=== PATIENT | male | born 1980 | race Caucasian/White ===

== ENCOUNTER 2023-06-23 11:38 | Inpatient (IN) | payer MEDICAID ==
[~2023-06-23] VITALS: Ht 180.3 cm; Wt 87.9 kg
[2023-06-23] MEDS ORDERED: insulin regular, human 10 units/0.1 ml syringe SQ ONE (12:20)
[2023-06-23] MEDS ORDERED: normal saline 1000ML IV soln IVB ONE (12:20)
[2023-06-23 12:41] LABS: BASOPHILS % (AUTO) 0.1 % (0-1); EOSINOPHILS % (AUTO) 0 % (0-6); HEMATOCRIT 47.1 % (42.0-52.0); HEMOGLOBIN 15.8 g/dl (14.0-17.9); LYMPHOCYTES # (AUTO) 0.9 X10'3 (1.1-4.8); LYMPHOCYTES % (AUTO) 5.9 % (21-51); MEAN CORPUSCULAR HGB CONC 33.5 g/dL (33.0-36.5); MEAN CORPUSCULAR VOLUME 86.6 FL (78-98); MEAN PLATELET VOLUME 10.4 FL (7.4-10.4); MONOCYTES # (AUTO) 0.4 X10'3 (0-0.9); MONOCYTES % (AUTO) 2.5 % (2-12); NEUTROPHILS # (AUTO) 13.3 X10'3 (1.8-7.7); NEUTROPHILS % (AUTO) 91.5 % (42-75); PLATELET COUNT 357 X10'3 (140-440); RED BLOOD COUNT 5.45 X10'6 (4.70-6.10); RED CELL DISTRIBUTION WIDTH 13.1 % (11.5-14.5); WHITE BLOOD COUNT 14.5 X10'3 (4.5-11.0)
[2023-06-23 12:42] LABS: BILIRUBIN,URINE NEGATIVE (Neg); CLARITY,URINE CLEAR (Clear); COLOR,URINE YELLOW (Yellow); GLUCOSE, URINE >=1000 mg/dl (Neg); KETONES,URINE >=80 mg/dl (Neg); LEUKOCYTE ESTERASE ,URINE NEGATIVE (Neg); NITRITES, URINE NEGATIVE (Neg); OCCULT BLOOD,URINE TRACE-INTACT (Neg); PROTEIN,URINE NEGATIVE (Neg); UROBILINOGEN,URINE 0.2 E.U/dL (0.2-1.0)
[2023-06-23 12:49] LABS: UA COLLECTION TYPE URINAL
[2023-06-23 12:50] LABS: BACTERIA,URINE NONE SEEN /HPF (Neg); MUCUS STRANDS NONE SEEN /LPF (Neg); SQUAMOUS EPITHELIAL CELL,UR FEW /LPF (FEW); WBC,URINE 0-4 /HPF (0-4)
[2023-06-23 12:54] LABS: URINE AMPHETAMINE SCREEN NEGATIVE (Neg); URINE BARBITUATE SCREEN NEGATIVE (Neg); URINE BENZODIAZEPINES SCREEN NEGATIVE (Neg); URINE CANNABINOID SCREEN NEGATIVE (Neg); URINE COCAINE SCREEN POSITIVE (Neg); URINE METHADONE SCREEN NEGATIVE (Neg); URINE OPIATE SCREEN NEGATIVE (Neg); URINE PHENCYCLIDINE SCREEN NEGATIVE (Neg)
[2023-06-23 13:01] LABS: ALANINE AMINOTRANSFERASE 14 U/L (12-78); ALBUMIN 3.5 G/DL (3.4-5.0); ALBUMIN/GLOBULIN RATIO 0.7 (1.1-1.5); ALKALINE PHOSPHATASE 128 IU/L (46-116); ANION GAP 21 (8-16); ASPARTATE AMINO TRANSFERASE 22 U/L (10-37); BILIRUBIN,TOTAL 0.8 MG/DL (0.1-1.0); BLOOD UREA NITROGEN 17 MG/DL (7-18); CALCIUM 9.3 MG/DL (8.5-10.1); CHLORIDE 91 MMOL/L (99-107); CREATININE 1.31 MG/DL (0.60-1.10); POTASSIUM 4.5 MMOL/L (3.5-5.1); SODIUM 131 MMOL/L (135-145); TOTAL PROTEIN 8.5 G/DL (6.4-8.2); eCRCL 77 ML/MIN; eGFR 59 ML/MIN
[2023-06-23 13:24] LABS: ETHANOL < 10 MG/DL (<10); GLUCOSE 554 MG/DL (70-104)
[2023-06-23] MEDS ORDERED: Insulin Reg/NS 100units/100mL 100 ML IV PRN (13:30)
[2023-06-23] MEDS ORDERED: normal saline 1000ml 1,000 ML IV SCH (14:20)
[2023-06-23] MEDS ORDERED: sodium bicarbonate (8.4%) inj. 50 MEQ in dextrose 5% water 500ml 250 ML IV PRN (14:50)
[2023-06-23] MEDS: normal saline 1000ml 1,000 ML IV SCH ×4 (14:50→22:03)
[2023-06-23] MEDS ORDERED: potassium Cl 20 mEq SR tablet PO PRN ×3 (14:50)
[2023-06-23] MEDS ORDERED: sodium phosphate inj. 15 MMOL in dextrose 5%-water 250 ML IV PRN (14:50)
[2023-06-23] MEDS ORDERED: sodium phosphate inj. 30 MMOL in dextrose 5%-water 250 ML IV PRN (14:50)
[2023-06-23] MEDS ORDERED: insulin regular, human U-100 3ml vial - multi-dose IV PRN (14:50)
[2023-06-23] MEDS ORDERED: sodium bicarbonate (8.4%) inj. 100 MEQ in dextrose 5% water 500ml 500 ML IV PRN (14:50)
[2023-06-23] MEDS ORDERED: acetaminophen 325mg tablet PO PRN ×2 (14:50)
[2023-06-23] MEDS ORDERED: magnesium 2GM in 50ml NS 50 ML IV PRN (14:50)
[2023-06-23] MEDS ORDERED: potassium CL 20mEq in D5-1/2NS 1,000 ML IV PRN (14:50)
[2023-06-23] MEDS ORDERED: magnesium 4gm in 100ml NS 100 ML IV PRN (14:50)
[2023-06-23] MEDS ORDERED: potassium Cl 40MEQ/1/2NS 520ml 520 ML IV PRN ×2 (14:50)
[2023-06-23] MEDS ORDERED: magnesium Cl slow-release 64mg tablet PO PRN (14:50)
[2023-06-23] MEDS ORDERED: INSU100V9 SQ (14:53)
[2023-06-23] MEDS ORDERED: INSU100C10 SQ (14:53)
[2023-06-23] MEDS ORDERED: AMLO5TAB PO (14:57)
[2023-06-23] MEDS: Insulin Reg/NS 100units/100mL 100 ML IV SCH ×2 (15:15→20:51)
[2023-06-23] MEDS: LORazepam 2 mg/ml vial IV PRN (15:18)
[2023-06-23] MEDS ORDERED: atenolol 25mg tablet PO ONE (15:30)
[2023-06-23 17:07] LABS: ALBUMIN 3.1 G/DL (3.4-5.0); ANION GAP 17 (8-16); BLOOD UREA NITROGEN 15 MG/DL (7-18); BUN/CREATININE RATIO 13.8 (10.0-20.0); CALCIUM 8.5 MG/DL (8.5-10.1); CHLORIDE 101 MMOL/L (99-107); CREATININE 1.09 MG/DL (0.60-1.10); GLUCOSE 310 MG/DL (70-104); PHOSPHORUS 1.5 MG/DL (2.3-4.5); POTASSIUM 3.6 MMOL/L (3.5-5.1); SODIUM 135 MMOL/L (135-145); TOTAL CARBON DIOXIDE 16.9 MMOL/L (24-32); eCRCL 92 ML/MIN; eGFR 73 ML/MIN
[2023-06-23] MEDS: potassium CL 20mEq in D5-1/2NS 1,000 ML IV PRN ×3 (17:49→23:49)
--- NOTE | 2023-06-23 17:51 | NUR ---
BG 234. IVF changed per protocol.
[2023-06-23] MEDS: K and/or MAG REPLACEMENT MC SCH (19:57)
[2023-06-23 20:35] VITALS: BP 155/83; PULSE 92; RESP 17; TEMP 98.1; O2SAT 95
[2023-06-23] MEDS: enoxaparin 40mg/0.4ml syringe SQ SCH (20:59)
[2023-06-23] MEDS: morphine 2 MG/ML inj. syringe IV PRN (20:59)
[2023-06-23] MEDS: LORazepam 0.5 MG tablet PO PRN (21:00)
[2023-06-23 21:02] LABS: ALBUMIN 2.9 G/DL (3.4-5.0); ANION GAP 10 (8-16); BLOOD UREA NITROGEN 13 MG/DL (7-18); BUN/CREATININE RATIO 13.1 (10.0-20.0); CALCIUM 8.6 MG/DL (8.5-10.1); CHLORIDE 102 MMOL/L (99-107); CREATININE 0.99 MG/DL (0.60-1.10); GLUCOSE 226 MG/DL (70-104); PHOSPHORUS 1.3 MG/DL (2.3-4.5); POTASSIUM 3.7 MMOL/L (3.5-5.1); SODIUM 134 MMOL/L (135-145); TOTAL CARBON DIOXIDE 21.9 MMOL/L (24-32); eCRCL 101 ML/MIN; eGFR 82 ML/MIN
[2023-06-23 21:14] VITALS: O2SAT 96
[2023-06-23] MEDS: ondansetron/PF 4mg/2ml inj IV PRN (21:38)
[2023-06-23 21:42] VITALS: RESP 16; O2SAT 97
[2023-06-23 22:19] LABS: MAGNESIUM 1.8 MG/DL (1.5-2.4)
[2023-06-23] MEDS: Neutra Phos packet PO PRN (22:34)
[2023-06-23] MEDS ORDERED: dextrose 50%-water 50ml dispensing syringe IV PRN ×2 (22:55)
[2023-06-23] MEDS ORDERED: MESSAGE TO PHARMACY PO ONE (22:55)
[2023-06-23] MEDS ORDERED: glucagon, human recombinant 1mg kit SUBCUT PRN (22:55)
[2023-06-23] MEDS ORDERED: DEXTROSE 15 GM of carb/4 tabs (each vial/BOTTLE has 4 tablets) PO PRN ×2 (22:55)
--- NOTE | 2023-06-23 23:12 | NUR ---
Called MD Spangler for a phosphate of 1.3 and ordered that I follow the ordered Neutro-phos replacement under PRN orders (per order this is to be used for 1.5-2.3 but is aware and still wanted this replacement).
[2023-06-24] VITALS (14 sets, daily range): BP systolic 147–172; BP diastolic 73–101; PULSE 78–123; RESP 12–22; TEMP 98–99.7; O2SAT 94–99
[2023-06-24] MEDS: LORazepam 0.5 MG tablet PO PRN ×4 (01:08→15:52)
[2023-06-24] MEDS: normal saline 1000ml 1,000 ML IV SCH ×8 (02:03→22:50)
--- NOTE | 2023-06-24 02:27 | NUR ---
MD Spangler notified by phone that patient had a blood pressure of 171/94. ordered prn iv push hydralazine for systolic blood pressure greater than 160.
[2023-06-24] MEDS: Neutra Phos packet PO PRN ×4 (02:47→19:11)
[2023-06-24] MEDS: hydrALAZINE 20mg/ml inj. IV PRN ×3 (02:47→22:35)
[2023-06-24] MEDS: potassium CL 20mEq in D5-1/2NS 1,000 ML IV PRN (04:02)
[2023-06-24] MEDS: Insulin Reg/NS 100units/100mL 100 ML IV SCH (04:07)
[2023-06-24] MEDS: morphine 2 MG/ML inj. syringe IV PRN ×4 (05:06→21:20)
[2023-06-24 05:10] LABS: BASOPHILS # (AUTO) 0.1 X10'3 (0-0.2); BASOPHILS % (AUTO) 0.4 % (0-1); EOSINOPHILS % (AUTO) 0.1 % (0-6); HEMATOCRIT 42.9 % (42.0-52.0); HEMOGLOBIN 14.4 g/dl (14.0-17.9); LYMPHOCYTES # (AUTO) 1.1 X10'3 (1.1-4.8); LYMPHOCYTES % (AUTO) 7.9 % (21-51); MEAN CORPUSCULAR HEMOGLOBIN 28.5 PG (27.0-31.0); MEAN CORPUSCULAR HGB CONC 33.5 g/dL (33.0-36.5); MEAN CORPUSCULAR VOLUME 85.2 FL (78-98); MEAN PLATELET VOLUME 9.7 FL (7.4-10.4); MONOCYTES % (AUTO) 6.8 % (2-12); NEUTROPHILS % (AUTO) 84.8 % (42-75); PLATELET COUNT 350 X10'3 (140-440); RED BLOOD COUNT 5.04 X10'6 (4.70-6.10); WHITE BLOOD COUNT 14.1 X10'3 (4.5-11.0)
[2023-06-24 05:18] LABS: ANION GAP 11 (8-16); BLOOD UREA NITROGEN 10 MG/DL (7-18); BUN/CREATININE RATIO 12.3 (10.0-20.0); CALCIUM 8.8 MG/DL (8.5-10.1); CHLORIDE 102 MMOL/L (99-107); CREATININE 0.81 MG/DL (0.60-1.10); GLUCOSE 166 MG/DL (70-104); MAGNESIUM 1.6 MG/DL (1.5-2.4); PHOSPHORUS 1.9 MG/DL (2.3-4.5); POTASSIUM 3.4 MMOL/L (3.5-5.1); SODIUM 135 MMOL/L (135-145); TOTAL CARBON DIOXIDE 21.8 MMOL/L (24-32); eCRCL 124 ML/MIN; eGFR > 90 ML/MIN
[2023-06-24] MEDS: potassium Cl 20 mEq SR tablet PO PRN ×2 (05:26→12:03)
[2023-06-24 05:41] LABS: HEMOGLOBIN A1C 10.5 % (4.5-6.2)
[2023-06-24] MEDS: ondansetron/PF 4mg/2ml inj IV PRN ×3 (05:54→17:38)
--- NOTE | 2023-06-24 06:42 | NUR ---
Patient in room U 3025. I have received report from Rocky BARNETT and had the opportunity to ask questions and assume patient care. Addendum: 06/24/23 at 0643 by Randa Sneed RN Amended: Links added.
[2023-06-24] MEDS: K and/or MAG REPLACEMENT MC SCH ×2 (07:34→19:13)
[2023-06-24] MEDS: insulin Lispro (HumaLOG) vial - multi-dose SQ SCH ×4 (07:57→20:39)
[2023-06-24 08:35] LABS: ALBUMIN 3.1 G/DL (3.4-5.0); ANION GAP 10 (8-16); BLOOD UREA NITROGEN 7 MG/DL (7-18); BUN/CREATININE RATIO 8.2 (10.0-20.0); CALCIUM 8.5 MG/DL (8.5-10.1); CHLORIDE 99 MMOL/L (99-107); CREATININE 0.85 MG/DL (0.60-1.10); GLUCOSE 188 MG/DL (70-104); MAGNESIUM 1.4 MG/DL (1.5-2.4); PHOSPHORUS 1.6 MG/DL (2.3-4.5); POTASSIUM 3.2 MMOL/L (3.5-5.1); SODIUM 133 MMOL/L (135-145); TOTAL CARBON DIOXIDE 23.6 MMOL/L (24-32); eCRCL 118 ML/MIN; eGFR > 90 ML/MIN
--- NOTE | 2023-06-24 10:25 | NUR ---
Initial: Pt admit for DKA and HTN. Per H&P pt reports not taking his DM medications for more than three days, current A1c 10.5% with BG greater than 600 mg/dL on admit. Noted tox screen positive for fentanyl and cocaine. Pt would benefit from DM education as appropriate. Pt initially NPO with diet advancement to CHO controlled this morning and pt ate poorly for first meal, documented with 25% PO intake of protein and 100% PO intake of milk. LBM 06/22 per EMR. Will continue to follow closely and monitor need for nutrition intervention pending trends in PO intake. Recommendations: 1) Continue CHO controlled diet 2) Monitor need for ONS/additional protein 3) Routine bowel care 4) Weekly scaled weights 5) DM education as appropriate; Per EMR: T2DM with A1c 10.5% and DKA on admit Addendum: 06/24/23 at [address] Amended: Links added.
--- NOTE | 2023-06-24 11:57 | NUR ---
PAGER ID: [phone] MESSAGE: [phone] Sarah. Please call Randa ARCHER regarding IV fluids. Pt off Insulin Gtt. #[id number]
--- NOTE | 2023-06-24 16:27 | NUR ---
PAGER ID: [phone] MESSAGE: [phone] Sarah Barnhartbobo is not controlling N/V. Pt vomiting up electrolyte replacements. I will replace K= IV. Pt having Multi episodes of loose stool. Can I order BMP to monitor for DKA relapse? Randa U #[id number]
[2023-06-24] MEDS: ipratropium/albuterol 3ml nebule NEB SCH ×2 (17:38→23:00)
--- NOTE | 2023-06-24 18:27 | NUR ---
Problems reprioritized. Patient report given, questions answered & plan of care reviewed with Rocky BARNETT. Pt remains painful,N/V and heart burn. All meds that have been ordered given in a consistent timely manner . Await results of BMP. Addendum: 06/24/23 at 1831 by Randa Sneed RN Amended: Links added.
[2023-06-24 18:32] LABS: ALBUMIN 3.2 G/DL (3.4-5.0); ANION GAP 17 (8-16); BLOOD UREA NITROGEN 11 MG/DL (7-18); BUN/CREATININE RATIO 11.2 (10.0-20.0); CHLORIDE 97 MMOL/L (99-107); CREATININE 0.98 MG/DL (0.60-1.10); GLUCOSE 344 MG/DL (70-104); POTASSIUM 3.4 MMOL/L (3.5-5.1); SODIUM 133 MMOL/L (135-145); TOTAL CARBON DIOXIDE 19.4 MMOL/L (24-32); eCRCL 102 ML/MIN; eGFR 83 ML/MIN
[2023-06-24 18:55] LABS: MAGNESIUM 1.6 MG/DL (1.5-2.4); PHOSPHORUS 2.3 MG/DL (2.3-4.5)
[2023-06-24] MEDS: enoxaparin 40mg/0.4ml syringe SQ SCH (19:06)
[2023-06-24] MEDS: LORazepam 2 mg/ml vial IV PRN ×2 (19:06→23:43)
[2023-06-24] MEDS: insulin glargine (Lantus) pen - multi-dose SQ SCH (20:38)
[2023-06-25] VITALS (12 sets, daily range): BP systolic 139–171; BP diastolic 77–95; PULSE 98–121; RESP 14–22; TEMP 97.8–99; O2SAT 95–100
[2023-06-25] MEDS ORDERED: metoprolol tartrate 1mg/ml inj IV ONE (00:05)
[2023-06-25] MEDS ORDERED: metoprolol tartrate 1mg/ml inj IV PRN (00:05)
--- NOTE | 2023-06-25 00:11 | NUR ---
MD Spangler notified by phone that patient had a sustained heart rate in the 120's BPM and that he was asymptomatic. MD ordered a one-time dose of 10 mg of metoprolol iv push and a PRN Q4 hour 5mg metoprolol order iv push.
[2023-06-25] MEDS: Neutra Phos packet PO PRN ×2 (00:41→23:21)
[2023-06-25] MEDS: ondansetron/PF 4mg/2ml inj IV PRN ×2 (01:24→23:23)
[2023-06-25] MEDS: morphine 2 MG/ML inj. syringe IV PRN ×6 (01:24→23:54)
[2023-06-25] MEDS: normal saline 1000ml 1,000 ML IV SCH ×3 (01:27→13:05)
[2023-06-25] MEDS: ipratropium/albuterol 3ml nebule NEB SCH ×4 (03:00→14:39)
[2023-06-25] MEDS: LORazepam 2 mg/ml vial IV PRN ×5 (04:27→23:53)
--- NOTE | 2023-06-25 06:50 | NUR ---
Patient in room PCU 3025. I have received report from Rocky BARNETT and had the opportunity to ask questions and assume patient care.
[2023-06-25] MEDS ORDERED: mupirocin 2% nasal ointment 1gm UD NS SCH (08:00)
[2023-06-25] MEDS: K and/or MAG REPLACEMENT MC SCH ×2 (08:00→19:14)
[2023-06-25 08:04] LABS: ALBUMIN 2.8 G/DL (3.4-5.0); ANION GAP 23 (8-16); BLOOD UREA NITROGEN 17 MG/DL (7-18); BUN/CREATININE RATIO 15.7 (10.0-20.0); CALCIUM 8.3 MG/DL (8.5-10.1); CHLORIDE 97 MMOL/L (99-107); CREATININE 1.08 MG/DL (0.60-1.10); GLUCOSE 391 MG/DL (70-104); MAGNESIUM 1.5 MG/DL (1.5-2.4); PHOSPHORUS 3.5 MG/DL (2.3-4.5); POTASSIUM 3.9 MMOL/L (3.5-5.1); SODIUM 132 MMOL/L (135-145); eCRCL 93 ML/MIN; eGFR 74 ML/MIN
[2023-06-25 08:13] LABS: TOTAL CARBON DIOXIDE 12.2 MMOL/L (24-32)
--- NOTE | 2023-06-25 08:20 | NUR ---
PAGER ID: [phone] MESSAGE: Sarah [id number], Pt has critical lab value CO2 - 12.2. BS up to 356 this morning, will correct BS but I am worried he is slipping into DKA again. [place] 3084
[2023-06-25] MEDS ORDERED: potassium Cl 40MEQ/1/2NS 520ml 520 ML IV PRN ×2 (08:55)
[2023-06-25] MEDS ORDERED: sodium phosphate inj. 15 MMOL in dextrose 5%-water 250 ML IV PRN (08:55)
[2023-06-25] MEDS ORDERED: sodium phosphate inj. 30 MMOL in dextrose 5%-water 250 ML IV PRN (08:55)
[2023-06-25] MEDS ORDERED: insulin regular, human U-100 3ml vial - multi-dose IV PRN (08:55)
[2023-06-25] MEDS ORDERED: sodium bicarbonate (8.4%) inj. 50 MEQ in dextrose 5% water 500ml 250 ML IV PRN (08:55)
[2023-06-25] MEDS ORDERED: Neutra Phos packet PO PRN (08:55)
[2023-06-25] MEDS ORDERED: sodium bicarbonate (8.4%) inj. 100 MEQ in dextrose 5% water 500ml 500 ML IV PRN (08:55)
[2023-06-25] MEDS ORDERED: potassium Cl 20 mEq SR tablet PO PRN ×2 (08:55)
[2023-06-25] MEDS: Insulin Reg/NS 100units/100mL 100 ML IV SCH (10:05)
[2023-06-25] MEDS: insulin Lispro (HumaLOG) vial - multi-dose SQ SCH (10:09)
--- NOTE | 2023-06-25 10:38 | NUR ---
PAGER ID: [phone] MESSAGE: Sarah [id number], Pt tested positive for MRSA in his nares. [place] 0566
--- NOTE | 2023-06-25 10:50 | NUR ---
F/u 06/25: Per EMR pt pain intensity of 9, BG of 391mg/dl and a upward trending Anion Gap of 23mg/dl today thus pt not appropriate for diabetes nutrition education at this time. Will continue to monitor for a medically appropriate time to provide DM education. Addendum: 06/25/23 at [address] Amended: Links added.
[2023-06-25 13:25] LABS: ALBUMIN 2.9 G/DL (3.4-5.0); ANION GAP 16 (8-16); BLOOD UREA NITROGEN 21 MG/DL (7-18); CALCIUM 8.3 MG/DL (8.5-10.1); CHLORIDE 98 MMOL/L (99-107); CREATININE 1.31 MG/DL (0.60-1.10); PHOSPHORUS 3.7 MG/DL (2.3-4.5); POTASSIUM 3.9 MMOL/L (3.5-5.1); SODIUM 130 MMOL/L (135-145); TOTAL CARBON DIOXIDE 16.2 MMOL/L (24-32); eCRCL 77 ML/MIN; eGFR 59 ML/MIN
[2023-06-25 13:36] LABS: GLUCOSE 434 MG/DL (70-104)
[2023-06-25] MEDS: potassium CL 20mEq in D5-1/2NS 1,000 ML IV PRN ×2 (15:37→22:29)
[2023-06-25] MEDS ORDERED: ipratropium/albuterol 3ml nebule NEB PRN (16:30)
--- NOTE | 2023-06-25 16:36 | NUR ---
Spoke with Dr. Hutton regarding pt's scheduled breathing tx's. Pt has refusing. Okay to change to prn svn's. Order for svn tx's now updated.
--- NOTE | 2023-06-25 17:08 | NUR ---
Pt has moved himself into the bathroom for a "bird bath". Pt has unhooked himself from the IV's and knotted them up without telling nursing staff. He has refused to be seen by the doctor while not in bed. Pt is crying and yelling for everyone to leave him alone. We suspect that pt is being brought drugs by outside visitors. he has been calm and sleeping in bed all day but the two outbursts he has had was directly after his girlfriend visits. Dr Hutton has ordered a UA tox screen for the pt to check for this idea. Pt is very resistive to care and noncompliant to nursing care.
[2023-06-25 17:52] LABS: ALBUMIN 2.9 G/DL (3.4-5.0); ANION GAP 12 (8-16); BLOOD UREA NITROGEN 18 MG/DL (7-18); BUN/CREATININE RATIO 13.4 (10.0-20.0); CALCIUM 8.3 MG/DL (8.5-10.1); CHLORIDE 103 MMOL/L (99-107); CREATININE 1.34 MG/DL (0.60-1.10); GLUCOSE 251 MG/DL (70-104); POTASSIUM 3.9 MMOL/L (3.5-5.1); SODIUM 135 MMOL/L (135-145); TOTAL CARBON DIOXIDE 20.2 MMOL/L (24-32); eCRCL 75 ML/MIN; eGFR 58 ML/MIN
--- NOTE | 2023-06-25 18:57 | NUR ---
Problems reprioritized. Patient report given, questions answered & plan of care reviewed with Rocky BARNETT.
[2023-06-25] MEDS: enoxaparin 40mg/0.4ml syringe SQ SCH (19:45)
[2023-06-25] MEDS ORDERED: K and/or MAG REPLACEMENT MC SCH (20:00)
[2023-06-25] MEDS: insulin glargine (Lantus) pen - multi-dose SQ SCH (21:00)
[2023-06-25 22:53] LABS: ALBUMIN 2.7 G/DL (3.4-5.0); ANION GAP 6 (8-16); BLOOD UREA NITROGEN 15 MG/DL (7-18); BUN/CREATININE RATIO 16.5 (10.0-20.0); CALCIUM 8.4 MG/DL (8.5-10.1); CHLORIDE 105 MMOL/L (99-107); CREATININE 0.91 MG/DL (0.60-1.10); GLUCOSE 101 MG/DL (70-104); MAGNESIUM 1.7 MG/DL (1.5-2.4); PHOSPHORUS 1.8 MG/DL (2.3-4.5); POTASSIUM 3.3 MMOL/L (3.5-5.1); SODIUM 136 MMOL/L (135-145); TOTAL CARBON DIOXIDE 25.2 MMOL/L (24-32); eCRCL 110 ML/MIN; eGFR > 90 ML/MIN
[2023-06-25] MEDS: potassium Cl 20 mEq SR tablet PO PRN (23:21)
[2023-06-26] MEDS: DEXTROSE 10 % AND 0.45 % NACL 1,000 ML IV SCH ×2 (00:29→05:16)
[2023-06-26 02:15] VITALS: BP 145/87; PULSE 99; RESP 17; TEMP 97.7; O2SAT 96
[2023-06-26] MEDS: Insulin Reg/NS 100units/100mL 100 ML IV SCH (03:06)
[2023-06-26 03:14] LABS: ALBUMIN 2.6 G/DL (3.4-5.0); ANION GAP 8 (8-16); BLOOD UREA NITROGEN 12 MG/DL (7-18); BUN/CREATININE RATIO 12.9 (10.0-20.0); CALCIUM 8.2 MG/DL (8.5-10.1); CHLORIDE 104 MMOL/L (99-107); CREATININE 0.93 MG/DL (0.60-1.10); GLUCOSE 111 MG/DL (70-104); MAGNESIUM 1.7 MG/DL (1.5-2.4); SODIUM 138 MMOL/L (135-145); TOTAL CARBON DIOXIDE 26.3 MMOL/L (24-32); eCRCL 108 ML/MIN; eGFR 88 ML/MIN
[2023-06-26 03:18] LABS: URINE AMPHETAMINE SCREEN NEGATIVE (Neg); URINE BARBITUATE SCREEN NEGATIVE (Neg); URINE BENZODIAZEPINES SCREEN NEGATIVE (Neg); URINE CANNABINOID SCREEN NEGATIVE (Neg); URINE COCAINE SCREEN NEGATIVE (Neg); URINE METHADONE SCREEN NEGATIVE (Neg); URINE OPIATE SCREEN POSITIVE (Neg); URINE PHENCYCLIDINE SCREEN NEGATIVE (Neg)
[2023-06-26] MEDS: LORazepam 2 mg/ml vial IV PRN (03:57)
[2023-06-26] MEDS: morphine 2 MG/ML inj. syringe IV PRN ×2 (03:58→08:33)
[2023-06-26] MEDS: potassium Cl 40MEQ/1/2NS 520ml 520 ML IV PRN ×2 (04:13→08:33)
[2023-06-26 04:28] VITALS: PULSE 90; RESP 18; O2SAT 98
[2023-06-26 04:35] VITALS: PULSE 98; RESP 18
[2023-06-26] MEDS: insulin Lispro (HumaLOG) vial - multi-dose SQ SCH (04:51)
[2023-06-26] MEDS ORDERED: normal saline 1000ml 1,000 ML IV SCH (06:00)
--- NOTE | 2023-06-26 06:19 | NUR ---
Patient in room PCU 3025. I have received report from Rocky BARNETT and had the opportunity to ask questions and assume patient care.
[2023-06-26 07:45] VITALS: PULSE 99; RESP 18; O2SAT 98
[2023-06-26 07:49] LABS: ALBUMIN 2.4 G/DL (3.4-5.0); ANION GAP 10 (8-16); BLOOD UREA NITROGEN 11 MG/DL (7-18); BUN/CREATININE RATIO 12.6 (10.0-20.0); CHLORIDE 103 MMOL/L (99-107); CREATININE 0.87 MG/DL (0.60-1.10); GLUCOSE 187 MG/DL (70-104); MAGNESIUM 1.5 MG/DL (1.5-2.4); PHOSPHORUS 1.7 MG/DL (2.3-4.5); POTASSIUM 3.3 MMOL/L (3.5-5.1); SODIUM 136 MMOL/L (135-145); TOTAL CARBON DIOXIDE 23.5 MMOL/L (24-32); eCRCL 115 ML/MIN; eGFR > 90 ML/MIN
[2023-06-26 08:33] VITALS: RESP 16
[2023-06-26] MEDS: Neutra Phos packet PO PRN (08:33)
--- NOTE | 2023-06-26 09:33 | NUR ---
Pt was complaining about pain this morning, otherwise said he was fine. I gave his morphine and within 10 minutes had ripped his IV's out and through his tele box on the ground. He ripped his clothes off and stated he wanted to leave the hospital. I figured pt wanted to leave AMA before but wanted to get pain meds before leaving. I brought him the AMA form but he said, "I'm not signing any fucking form. Fuck you, you guys are not trying to help me so I'm out." Dr Bloom has been notified via resident.
== END 2023-06-26 08:43 | disposition left against medical advice (07) | DRG 420 ==
LOC: ER 11:40 → ED HOLD 14:56 → PCU 3S 19:31
PROVIDERS: ADMIT Internal Medicine; ATTEND Internal Medicine
DX: E11.10 Type 2 diabetes mellitus with ketoacidosis without coma (principal); N17.0 Acute kidney failure with tubular necrosis; R65.11 Systemic inflammatory response syndrome (SIRS) of non-infectious origin with acute organ dysfunction; E87.1 Hypo-osmolality and hyponatremia; Z53.21 Procedure and treatment not carried out due to patient leaving prior to being seen by health care provider; Z20.822 Contact with and (suspected) exposure to COVID-19; I10 Essential (primary) hypertension; F17.210 Nicotine dependence, cigarettes, uncomplicated; F19.10 Other psychoactive substance abuse, uncomplicated; E87.6 Hypokalemia; D72.829 Elevated white blood cell count, unspecified; E86.0 Dehydration
CPT/HCPCS: 36415; 71045; 80048; 80053; 80305; 80320; 81001; 82948; 83036; 83605; 83735; 84100; 84484; 85025; 87040; 87081; 87811; 93005; 93306; 94640; 94760; 99285; G0378; J0360; J1650; J1815; J2060; J2270; J2405; J3480; J3490; J7030; J7040; J7070